=== PATIENT | male | born 1990 | race Caucasian/White ===

== ENCOUNTER 2018-09-03 22:20 | Emergency (ER) | payer SELFPAY ==
[~2018-09-03] VITALS: Ht 167.6 cm; Wt 86.2 kg
--- NOTE | 2018-09-03 22:33 | NUR ---
TO LOBBY A/W BED, AMBULATORY
--- NOTE | 2018-09-04 00:12 | NUR ---
PT AMBULATED TO BED #5
--- NOTE | 2018-09-04 00:22 | NUR ---
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 PATIENT DENIES ANY LOSS OF SENSATION, +DECREASE ROM. PATIENT DENIES N/V/D; SKIN IS PINK/WARM/DRY; AAOX4 WITH EVEN AND STEADY GAIT; LUNGS CLEAR BL; HR EVEN AND REGULAR; PT DENIES ANY FEVER, CP, SOB, OR COUGH AT THIS TIME; PATIENT STATES PAIN OF 8/10 AT THIS TIME; VSS; PATIENT POSITIONED FOR COMFORT; HOB ELEVATED; BEDRAILS UP X2; BED DOWN. ER MD MADE AWARE OF PT STATUS.
[2018-09-04] MEDS ORDERED: LIDOCAINE 1% 500 MG/50 ML VIAL INJ SCH (00:35)
[2018-09-04] MEDS ORDERED: LIDOCAINE MPF 1% - 5 mL VIAL 10 ML ONE (00:52)
[2018-09-04] MEDS ORDERED: IBUPROFEN 800 MG TAB PO ONE (00:55)
[2018-09-04] MEDS ORDERED: SULFAMETH/TRIMETH DS 800/160MG 1 TAB PO ONE (00:55)
[2018-09-04] MEDS ORDERED: NEOMYCIN/POLYMYXIN/BACITRACIN 0.9 GM/1 PKT TP ONE (00:55)
--- NOTE | 2018-09-04 01:05 | NUR ---
NAVI SPORAN PLACED ON PTS WOUND ON LEFT LOWER ARM, NON ADHESIVE GAUZE PLACE TO COVER WOUND AND A ROLL GAUZE TO WRAP. PTS PMSC WNL
[2018-09-04 01:43] VITALS: BP 142/78
--- NOTE | 2018-09-04 01:43 | NUR ---
Patient discharged with v/s stable. Written and verbal after care instructions given and explained. Patient alert, oriented and verbalized understanding of instructions. Ambulatory with steady gait. All questions addressed prior to discharge. ID band removed. Patient advised to follow up with PMD. Rx of BACTRIM AND MOTRIN WAS given. Patient educated on indication of medication including possible reaction and side effects. Opportunity to ask questions provided and answered.
== END 2018-09-04 01:43 | disposition home or self-care (01) ==
LOC: MED 22:20
DX: S61.012A Laceration without foreign body of left thumb without damage to nail, initial encounter (principal); W27.0XXA Contact with workbench tool, initial encounter; Y93.89 Activity, other specified; Y92.89 Other specified places as the place of occurrence of the external cause; Y99.8 Other external cause status
CPT/HCPCS: 12001; 73130; 90471; 90715; 99284; J2001; Q0092